=== PATIENT | female | born 2000 | race Caucasian/White ===

== ENCOUNTER 2021-06-07 14:03 | Outpatient (CLI) | payer BC, SELFPAY ==
[2021-06-07 14:21] LABS: Hematocrit 42.4 % (37.0-47.0); Mean Corpuscular Hemoglobin 31.1 pg (26-34); Mean Corpuscular Volume 94.2 fl (80-100); Mean Platelet Volume 9.2 fl (7.4-10.4); Platelet Count Result 244 k/mm3 (150-375); White Blood Count 6.2 K/mm3 (4.5-10.0)
[2021-06-07 15:26] LABS: Free T4 Free Thyroxine 1.12 ng/mL (0.78-2.19)
== END 2021-06-07 14:04 | disposition home or self-care (01) ==
PROVIDERS: PCP Pediatrics; Visit Provider Obstetrics & Gynecology
DX: N92.1 Excessive and frequent menstruation with irregular cycle (principal)
CPT/HCPCS: 36415; 84439; 84443; 85027

== ENCOUNTER → 2022-11-04 12:30 | Outpatient (CLI) | payer BC, SELFPAY ==
--- NOTE | ~2022-11-04 | MR_ITS ---
MRI of the right wrist Technique: Coronal T1 weighted and proton density fat sat images, and axial and sagittal proton-densi ty and proton-density fat-sat images were acquired. Clinical History: Pain Findings: Scapholunate ligament is intact, and there is no widening of the scapholunate interval. Tata otriquetral ligament is intact. TFCC is intact, without evidence of perforation. Bone marrow signals are unremarkable. No fracture or dislocation seen. No bone marrow edema or perios teal reaction. No joint effusion identified. No significant degenerative change. No evidence for infl ammatory/erosive arthropathy. Flexor tendons and carpal tunnel are unremarkable. Extensor tendons are intact. No soft tissue mass o r fluid collection seen. IMPRESSION: Unremarkable exam. Reviewed, dictated and finalized at location . IMPRESSION: Unremarkable exam.
== END ==
PROVIDERS: PCP Internal Medicine; Visit Provider Orthopaedic Surgery
DX: M25.531 Pain in right wrist (principal)
CPT/HCPCS: 73221